=== PATIENT | male | born 1945 | race Caucasian/White ===

== ENCOUNTER → 2017-01-24 | Outpatient (CLI) | payer MEDICARE, OTHER ==
--- NOTE | 2017-01-24 10:03 | REP ---
MR LUMBAR SPINE WITHOUT CONTRAST: HISTORY: Back pain. COMPARISON: 05/07/2013. Decreased signal intensity on T2-weighted images is present in the lumbar intervertebral discs. The discs are decreased in height. These findings are consistent with disc degeneration. A diffuse disc bulge is present at the L1-2 level. There is minimal compression of the thecal sac. The L1 nerves exit the neural foramina without compression. A diffuse disc bulge and small left paracentral and intraforaminal disc protrusion are present at the L2-3 level. There is hypertrophy of the ligamenta flava and posterior articulating facets. These findings produce minimal central canal stenosis. The L2 nerves exit the neural foramina without compression. A diffuse disc bugle is present at the L3-4 level. There is hypertrophy of the ligamenta flava and posterior articulating facets. These findings produce mild central canal stenosis. The L3 nerves exit the neural foramina without compression. A diffuse disc bulge is present at the L4-5 level. There is hypertrophy of the ligamenta flava and posterior articulating facets. These findings produce severe central canal stenosis. There is compression of the right L4 nerve in the neural foramen. The left L4 nerves exits the neural foramen without compression. A diffuse disc bulge is present at the L5-S1 level. There is minimal compression of the thecal sac. There is hypertrophy of the posterior articulating facets. There are 3 mm of grade 1 spondylolisthesis of L5 on S1. There is compression of the L5 nerves in the neural foramina. The conus medullaris is normal in appearance terminating at the level of the L1-2 intervertebral disc. A hemangioma is present in the S1 vertebral body. Normal signal intensity is present in the lumbar vertebral bodies. IMPRESSION: 1. Diffuse disc bulge at the L1-2 level with minimal thecal sac compression. 2. Minimal central canal stenosis at the L2-3 level secondary to disc bulge, disc protrusion, ligamentous, and facet hypertrophy. The disc protrusion is a new finding. 3. Mild central canal stenosis at the L3-4 level secondary to disc bulge, ligamentous, and facet hypertrophy. 4. Severe central canal stenosis at the L4-5 level secondary to disc bulge, ligamentous, and facet hypertrophy. There is compression of the right L4 nerve in the neural foramen. The right L4 nerve compression is a new finding. 5. Diffuse disc bulge at the L5-S1 level with minimal thecal sac compression. There is grade 1 spondylolisthesis of L5 on S1. There is compression of the L5 nerves in the neural foramina. There is no other significant change. Signed by Braeden Perez MD 01/24/2017 11:07 A
== END ==
LOC: M RAD 07:05
PROVIDERS: ATTEND Internal Medicine Cardiovascular Disease
DX: M54.5 Low back pain (principal)

== ENCOUNTER 2019-06-18 09:04 | Day surgery (SDC) | payer MEDICARE, BC, OTHER ==
[~2019-06-18] VITALS: Ht 177.8 cm; Wt 68.0 kg
[~2019-06-18 09:04] MED LIST: CARD120T4 PO; CHOL100029 PO; CVS1CAP2 PO; CYAN500T8 PO; ELIQ5TAB PO; GNP250TA9 PO; NS 1,000 ML IV ONE; OMEG1CAP16 PO; PRAV40TA2 PO; PYRI50TA40 PO; VALS1TAB66 PO; VITA500T PO
[2019-06-18] MEDS ORDERED: DILT180C78 PO (09:20)
--- NOTE | 2019-06-18 10:19 | ROOR ---
Patient Name: Leo Wheeler Procedure Date: 06/18/2019 9:58 AM Date of : 1945 Age: 74 Room: [facility] Gender: Male Note Status: Finalized Procedure: Upper GI endoscopy Indications: Malnutrition, Weight loss Providers: Oren CASTILLO MD Referring MD: APOLONIA DODSON MD Requesting Provider: Medicines: Monitored Anesthesia Care Complications: No immediate complications. Procedure: Pre-Anesthesia Assessment: - The heart rate, respiratory rate, oxygen saturations, blood pressure, adequacy of pulmonary ventilation, and response to care were monitored throughout the procedure. The Endoscope was introduced through the mouth, and advanced to the second part of duodenum. The upper GI endoscopy was accomplished without difficulty. The patient tolerated the procedure well. Findings: Abnormal motility was noted in the esophagus. There are extra peristaltic waves in the esophageal body. The distal esophagus/lower esophageal sphincter is open. The examined esophagus was normal. The entire examined stomach was normal. A large diverticulum was found in the second portion of the duodenum. The exam of the duodenum was otherwise normal. Impression: - Normal esophagus, likely with some dysmotility. - Normal stomach. - Normal duodenum with incidental finding of three moderate to large duodenal diverticula. - No specimens collected. Recommendation: - Perform a colonoscopy today. Oren Castillo MD Oren CASTILLO MD 06/18/2019 10:18:58 AM Electronically signed by Oren CASTILLO MD Number of Addenda: 0 Note Initiated On: 06/18/2019 9:58 AM Estimated Blood Loss: Estimated blood loss: none.
[2019-06-18] MEDS ORDERED: LIDOCAINE 2% INJ 100 MG/5 ML SDV (FOR ANES.) As Ordered ONE (10:21)
[2019-06-18] MEDS ORDERED: PROPOFOL 500 MG/50 ML VIAL As Ordered ONE (10:21)
[2019-06-18] MEDS ORDERED: ePHEDrine SULFATE 25 MG/5 ML(5MG/ML) SYRINGE As Ordered ONE (10:21)
[2019-06-18] MEDS ORDERED: fentaNYL 100 MCG/2 ML INJECTION (J3010) As Ordered ONE (10:21)
[2019-06-18] MEDS ORDERED: GLYCOPYRROLATE INJ 0.2 MG/ML 2 ML VIAL As Ordered ONE (10:21)
--- NOTE | 2019-06-18 10:38 | ROOR ---
Patient Name: Leo Wheeler Procedure Date: 06/18/2019 9:58 AM Date of : 1945 Age: 74 Room: [facility] Gender: Male Note Status: Finalized Procedure: Colonoscopy Indications: Weight loss Providers: Oren CASTILLO MD Referring MD: APOLONIA DODSON MD Requesting Provider: Medicines: Monitored Anesthesia Care Complications: No immediate complications. Procedure: Pre-Anesthesia Assessment: - The heart rate, respiratory rate, oxygen saturations, blood pressure, adequacy of pulmonary ventilation, and response to care were monitored throughout the procedure. The Colonoscope was introduced through the anus and advanced to the terminal ileum, with identification of the appendiceal orifice and IC valve. The colonoscopy was performed without difficulty. The patient tolerated the procedure well. The quality of the bowel preparation was good. Findings: The perianal and digital rectal examinations were normal. The colon (entire examined portion) was redundant. Small Internal Hemorrhoids. The entire examined colon appeared normal on direct and retroflexion views. Impression: - Redundant colon. - Small Internal Hemorrhoids. - The entire examined colon is normal on direct and retroflexion views. - No specimens collected. Recommendation: - Resume Eliquis (apixaban) at prior dose today. Refer to referring physician for further adjustment of therapy. Oren Castillo MD Oren CASTILLO MD 06/18/2019 10:37:58 AM Electronically signed by Oren CASTILLO MD Number of Addenda: 0 Note Initiated On: 06/18/2019 9:58 AM Estimated Blood Loss: Estimated blood loss: none.
[2019-06-18 10:55] VITALS: BP 159/68
== END 2019-06-18 11:04 | disposition home or self-care (01) ==
LOC: M OPP 09:04
PROVIDERS: ATTEND Internal Medicine Gastroenterology
DX: Q43.8 Other specified congenital malformations of intestine (principal); R63.4 Abnormal weight loss; K22.4 Dyskinesia of esophagus; E46 Unspecified protein-calorie malnutrition; I25.2 Old myocardial infarction; I48.91 Unspecified atrial fibrillation; Z79.899 Other long term (current) drug therapy; Z95.5 Presence of coronary angioplasty implant and graft; Z87.891 Personal history of nicotine dependence; Z86.19 Personal history of other infectious and parasitic diseases; Z87.19 Personal history of other diseases of the digestive system
CPT/HCPCS: 43235; 45378; J3010

== ENCOUNTER → 2022-04-11 | Outpatient (REF) | payer MEDICARE, BC, OTHER ==
[~2022-04-11] MED LIST changes: +CYAN500T14 PO; -CYAN500T8 PO; +DILT180C78 PO; -NS 1,000 ML IV ONE; +VITA-243 PO; -VITA500T PO
[2022-04-12 07:21] LABS: HEMATOCRIT 41.4 % (42.0-52.0); HEMOGLOBIN 13.4 g/dl (13.5-17.5); MEAN CORPUSCULAR HEMOGLOBIN 31.2 pg (27.0-33.0); MEAN CORPUSCULAR HGB CONC 32.4 g/dl (32.0-36.5); MEAN CORPUSCULAR VOLUME 96.3 fl (80.0-96.0); PLATELET COUNT, AUTOMATED 142 10^3/uL (150-450); WHITE BLOOD COUNT 8.3 10^3/uL (4.0-10.0)
[2022-04-12 07:27] LABS: APPEARANCE, URINE CLEAR (CLEAR); BACTERIA, URINE AUTO NEGATIVE (NEGATIVE); BILIRUBIN, URINE AUTO NEGATIVE (NEGATIVE); BLOOD, URINE BLOOD NEGATIVE (NEGATIVE); CALCIUM OXALATE CRYSTALS SMALL; COLOR, URINE AMBER (YELLOW); GLUCOSE, URINE (UA) AUTO NEGATIVE (NEGATIVE); KETONE, URINE AUTO TRACE mg/dL (NEGATIVE); LEUKOCYTE ESTERASE, URINE AUTO NEGATIVE (NEGATIVE); MUCUS, URINE SMALL (NEGATIVE); NITRITE, URINE AUTO NEGATIVE (NEGATIVE); PROTEIN, URINE AUTO 1+ mg/dL (NEGATIVE); RBC, URINE AUTO 4 /HPF (0-3); SPECIFIC GRAVITY URINE AUTO 1.021 (1.002-1.035); SQUAMOUS EPITHELIAL CELL UR AU 0 /HPF (0-6); UROBILINOGEN, URINE AUTO 0.2 mg/dL (0.0-2.0); WBC, URINE AUTO 4 /HPF (0-3)
[2022-04-12 07:49] LABS: ATYPICAL LYMPH 6 % (0-5); BASOPHILS 1 % (0-1); EOSINOPHILS 2 % (0-3); LYMPHOCYTES 5 % (16-44); MONOCYTES 12 % (0-5); NEUTROPHILS 67 % (28-66)
[2022-04-12 07:51] LABS: ALBUMIN 3.4 GM/DL (3.2-5.2); CALCIUM LEVEL 9.3 MG/DL (8.8-10.2); CHOLESTEROL RISK RATIO 2.865 (<5); CREATININE FOR GFR 1.39 MG/DL (0.70-1.30); CRENATED RBC 1+; GLOMERULAR FILTRATION RATE 52.7 (>42); MAGNESIUM LEVEL 2.5 MG/DL (1.8-2.4); OVALOCYTES 1+; PLATELET ESTIMATE DECREASED (NORMAL); POTASSIUM SERUM 4.6 MEQ/L (3.5-5.1); TOTAL PROTEIN 6.8 GM/DL (6.4-8.2)
== END ==
LOC: M LAB REF 16:32
PROVIDERS: ATTEND Internal Medicine
DX: R53.83 Other fatigue (principal); E83.42 Hypomagnesemia; Z13.6 Encounter for screening for cardiovascular disorders; R41.3 Other amnesia; I95.9 Hypotension, unspecified

== ENCOUNTER → 2024-02-25 | Outpatient (REF) | payer MEDICARE, OTHER | LOC: M LAB REF 16:24 | PROVIDERS: ATTEND Internal Medicine | DX: E31.9 Polyglandular dysfunction, unspecified (principal) ==

== ENCOUNTER → 2024-03-04 | Outpatient (REF) | payer MEDICARE, OTHER, BC | LOC: M LAB REF 11:19 | PROVIDERS: ATTEND Internal Medicine | DX: R31.29 Other microscopic hematuria (principal) ==

== ENCOUNTER → 2024-03-10 | Outpatient (REF) | payer MEDICARE, OTHER, BC | LOC: M LAB REF 16:07 | PROVIDERS: ATTEND Internal Medicine | DX: R31.29 Other microscopic hematuria (principal) ==

== ENCOUNTER → 2024-03-23 | Outpatient (REF) | payer MEDICARE, OTHER, BC | LOC: M LAB REF 16:12 | PROVIDERS: ATTEND Internal Medicine | DX: R31.29 Other microscopic hematuria (principal) ==

== ENCOUNTER → 2025-05-31 | Outpatient (CLI) | payer MEDICARE, OTHER ==
[~2025-05-31] MED LIST changes: -PRAV40TA2 PO; +PRAV40TA85 PO
== END ==
LOC: M RAD 08:33
PROVIDERS: ATTEND Surgery Vascular Surgery
DX: I65.23 Occlusion and stenosis of bilateral carotid arteries (principal); I71.40 Abdominal aortic aneurysm, without rupture, unspecified; Z98.890 Other specified postprocedural states

== ENCOUNTER → 2025-07-27 | Outpatient (REF) | payer MEDICARE, BC, OTHER ==
[2025-07-27 13:00] LABS: IRON (FE) 80.0 UG/DL (65-175); PERCENT SATURATION 25.9 % (19.7-50.0)
== END ==
LOC: M LAB REF 12:32
PROVIDERS: ATTEND Internal Medicine
DX: G30.1 Alzheimer's disease with late onset (principal); D68.69 Other thrombophilia; N18.31 Chronic kidney disease, stage 3a